=== PATIENT | female | born 1980 | race Two or more races ===

== ENCOUNTER 2023-07-22 07:41 | Inpatient (IN) | payer BC ==
[2023-07-20 12:03] LABS: Basophils # (auto) 0 10 ^3/uL (0-0.2); Basophils % (auto) 0.5 % (0.0-2.0); Eosinophils # (auto) 0.1 10 ^3/uL (0-0.8); Hematocrit 33.9 % (36.0-46.0); Hemoglobin 11.2 g/dL (12.2-16.2); Lymphocytes # (auto) 2.6 10 ^3/uL (0.4-5.4); Lymphocytes % (auto) 37.5 % (10.0-50.0); Mean Corpuscular Hemoglobin 28.5 pg (28.0-32.0); Mean Corpuscular Volume 86.3 fL (80.0-100.0); Monocytes # (auto) 0.6 10 ^3/uL (0-1.3); Monocytes % (auto) 8.7 % (0.0-12.0); Neutrophils # (auto) 3.6 10 ^3/uL (1.6-8.6); Neutrophils % (auto) 52.3 % (37.0-80.0); Red Blood Cells 3.93 10^6/uL (4.0-5.20); Red Cell Distribution Width 16.4 % (11.8-14.3); White Blood Cell 6.8 10^3/uL (4.4-10.8)
[2023-07-20 12:20] LABS: Urine Bacteria NONE SEEN /hpf (None Seen); Urine Blood 3+ /uL (Negative); Urine Clarity Clear (Clear); Urine Color Yellow (Yellow); Urine Mucus FEW (None Seen); Urine Protein, UAD TRACE (Negative); Urine Specific Gravity 1.028 (1.001-1.035); Urine Urobilinogen Normal (Negative); Urine WBC 7 /hpf (0 - 5)
[2023-07-20 12:28] LABS: INR 0.99 (0.9-1.15); Partial Thromboplastin Time 28.4 SEC (24.5-34.5); Prothrombin Time 10.4 sec (9.3-11.8)
[2023-07-20 12:36] LABS: Alanine Aminotransferase 12 U/L (7-40); Albumin 4.5 g/dL (3.2-4.8); Alkaline Phosphatase 66 U/L (46-116); Anion Gap 5 (5-15); Aspartate Aminotransferase 15 U/L (13-40); BUN/Creatinine Ratio 8.1 (10.0-20.0); Blood Urea Nitrogen 5 mg/dL (9-23); Calcium 9.1 mg/dL (8.5-10.1); Carbon Dioxide 27 mmol/L (20-30); Chloride 108 mmol/L (98-107); Glucose 95 mg/dL (74-106); Potassium 4.1 mmol/L (3.5-5.1); Sodium 140 mmol/L (136-145)
[2023-07-20 12:37] LABS: Bilirubin, Total 0.2 mg/dL (0.2-1.0); Total Protein 7.3 g/dL (5.7-8.2)
[~2023-07-22] VITALS: Ht 170.2 cm; Wt 72.0 kg
[~2023-07-22 07:41] MED LIST: FLUO20TA36 PO
[2023-07-22] MEDS ORDERED: ceFAZolin 2 GM/D5W100ml 100 ML IV ONE (07:59)
[2023-07-22] MEDS ORDERED: ACETAMINOPHEN IV 100 ML IV ONE (07:59)
[2023-07-22] MEDS ORDERED: GABAPENTIN 400 MG CAP ONE (08:00)
[2023-07-22] MEDS ORDERED: CELECOXIB 100 MG CAP ONE (08:00)
[2023-07-22] MEDS ORDERED: GABAPENTIN 300 MG CAP PO ONE (08:00)
[2023-07-22] MEDS ORDERED: CELECOXIB 100 MG CAP PO ONE (08:00)
[2023-07-22] MEDS ORDERED: ACETAMINOPHEN IV 1000 MG/100ML (10MG/ML) IV ONE (08:00)
[2023-07-22] MEDS ORDERED: GABAPENTIN 100 MG CAP ONE (08:00)
[2023-07-22] MEDS ORDERED: SUCCINYLCHOLINE CHLORIDE 20 MG/ML 10ML VIAL IV ONE (08:29)
[2023-07-22] MEDS ORDERED: fentaNYL CITRATE 100 MCG/2 ML VL ONE (08:34)
[2023-07-22] MEDS ORDERED: PROPOFOL 10 MG/ML 20 ML IV ONE (08:35)
[2023-07-22] MEDS ORDERED: BUPIVACAINE HCL 0.25% P/F 10 ML VIAL ONE (08:41)
[2023-07-22] MEDS ORDERED: ROCURONIUM 10MG/ML 10ML VIAL IV ONE (09:03)
[2023-07-22] MEDS ORDERED: ONDANSETRON HCL 4 MG/2 ML VIAL ONE (09:04)
[2023-07-22] MEDS ORDERED: DexAMETHasone SOD PHOS 10MG/1ML VIAL INJ ONE (09:04)
[2023-07-22] MEDS ORDERED: ePHEDrine SULFATE 50 MG/ML AMP ONE (09:10)
[2023-07-22] MEDS: BUPIVACAINE 0.5% P/F INJ 10 ML VIAL ONE ×2 (09:20→13:10)
[2023-07-22] MEDS: LIDOCAINE W/ EPINEPHRINE 1% 20ML VIAL ONE ×2 (09:20→13:11)
[2023-07-22] MEDS: VASOPRESSIN 20 UNIT/ML ONE ×2 (09:30→13:11)
[2023-07-22] MEDS ORDERED: MEPERIDINE HCL (25 MG/ML) 1ML VIAL ONE ×2 (10:18→10:49)
[2023-07-22] MEDS: METHYLENE BLUE 0.5% 5MG/ML 10ml AMP IV ONE ×2 (10:30→13:12)
[2023-07-22] MEDS ORDERED: SUGAMMADEX 200mg/2ml Vial (100MG/ML) IV ONE (10:36)
[2023-07-22] MEDS ORDERED: SODIUM CHLORIDE LOCK 30 ML ONE (10:42)
[2023-07-22 11:08] VITALS: RESP 9; O2SAT 99
[2023-07-22] MEDS ORDERED: ACETAMINOPHEN 500 MG TAB PO PRN (11:15)
[2023-07-22] MEDS ORDERED: HYDROcodone-ACET 5/325MG TAB PO PRN (11:15)
[2023-07-22] MEDS ORDERED: NITROGLYCERIN 0.4 MG SL TAB SL PRN (11:30)
[2023-07-22] MEDS ORDERED: MORPHINE SULFATE INJ 2 MG/ml SYRG IV PRN (11:30)
[2023-07-22] MEDS ORDERED: MEPERIDINE HCL (25 MG/ML) 1ML VIAL IV PRN (11:45)
[2023-07-22] MEDS ORDERED: ONDANSETRON HCL 4 MG/2 ML VIAL IV PRN (11:45)
[2023-07-22] MEDS ORDERED: HYDROmorphone HCL 2 MG/ML VL/or syr IV PRN (11:45)
[2023-07-22 13:00] VITALS: BP 116/69; PULSE 77; RESP 18; TEMP 97.2; O2SAT 99
[2023-07-22 13:01] VITALS: PULSE 77; RESP 18; O2SAT 99
[2023-07-22] MEDS: HYDROmorphone HCL 2 MG/ML VL/or syr IV PRN ×3 (13:07→22:27)
[2023-07-22] MEDS ORDERED: FLUO-126 PO (13:15)
[2023-07-22] MEDS ORDERED: ALPR0.25 PO (13:15)
[2023-07-22] MEDS: ceFAZolin 1GM/50ML 50 ML IV SCH ×2 (15:23→21:58)
[2023-07-22 17:00] VITALS: BP 120/70; PULSE 100; RESP 20; TEMP 98.3; O2SAT 97
[2023-07-22 18:44] LABS: Basophils # (auto) 0 10 ^3/uL (0-0.2); Eosinophils # (auto) 0 10 ^3/uL (0-0.8); Hematocrit 32.7 % (36.0-46.0); Hemoglobin 10.5 g/dL (12.2-16.2); Lymphocytes # (auto) 0.6 10 ^3/uL (0.4-5.4); Lymphocytes % (auto) 4.9 % (10.0-50.0); Mean Corpuscular Hemoglobin 27.8 pg (28.0-32.0); Mean Corpuscular Volume 86.7 fL (80.0-100.0); Monocytes # (auto) 0.2 10 ^3/uL (0-1.3); Monocytes % (auto) 1.4 % (0.0-12.0); Neutrophils # (auto) 11.1 10 ^3/uL (1.6-8.6); Neutrophils % (auto) 93.7 % (37.0-80.0); Red Blood Cells 3.77 10^6/uL (4.0-5.20); Red Cell Distribution Width 16.2 % (11.8-14.3); White Blood Cell 11.9 10^3/uL (4.4-10.8)
[2023-07-22 22:00] VITALS: BP 113/55; PULSE 95; RESP 17; TEMP 99.6; O2SAT 98
[2023-07-23] MEDS ORDERED: PERCOT PO ×2 (01:16)
[2023-07-23] MEDS ORDERED: IBUP-1455 PO (01:17)
[2023-07-23 05:00] VITALS: BP 115/69; PULSE 79; RESP 18; TEMP 98.6; O2SAT 97
[2023-07-23] MEDS: ceFAZolin 1GM/50ML 50 ML IV SCH ×2 (05:58→14:07)
[2023-07-23] MEDS: HYDROmorphone HCL 2 MG/ML VL/or syr IV PRN ×4 (05:58→21:24)
[2023-07-23 09:24] VITALS: BP 114/50; PULSE 84; RESP 18; TEMP 98.1; O2SAT 98
[2023-07-23 13:23] VITALS: BP 103/63; PULSE 83; RESP 16; TEMP 98.6; O2SAT 97
[2023-07-23 16:54] VITALS: BP 114/68; PULSE 81; RESP 16; TEMP 98.4; O2SAT 94
[2023-07-24] MEDS: ceFAZolin 1GM/50ML 50 ML IV SCH ×2 (00:12→06:18)
[2023-07-24 05:00] VITALS: BP 103/52; PULSE 78; RESP 16; TEMP 98.9; O2SAT 96
[2023-07-24 08:00] VITALS: BP 108/68; PULSE 74; RESP 21; TEMP 98.1; O2SAT 97
[2023-07-24 12:00] VITALS: BP 109/69; PULSE 81; RESP 20; TEMP 99.5; O2SAT 96
[2023-07-24 13:56] VITALS: BP 109/96; PULSE 96; RESP 20; TEMP 99.5; O2SAT 96
[2023-07-25] MEDS ORDERED: PERCOT PO (08:28)
[2023-07-25] MEDS ORDERED: HYDR-4902 PO (08:31)
== END 2023-07-24 14:00 | disposition home or self-care (01) | DRG 743 ==
LOC: SUR 07:41 → WEST WING 11:27 → UNDOADMIN 12:18 → TELE-WESTW 12:18 → WEST WING 07-24 01:50
PROVIDERS: ADMIT Obstetrics & Gynecology; ATTEND Obstetrics & Gynecology
PROC: 0TJB8ZZ Inspection of Bladder, Via Natural or Artificial Opening Endoscopic (ICD-10-PCS; 2023-07-22)
PROC: 0UT9FZZ Resection of Uterus, Via Natural or Artificial Opening With Percutaneous Endoscopic Assistance (ICD-10-PCS; 2023-07-22)
PROC: 0UT7FZZ Resection of Bilateral Fallopian Tubes, Via Natural or Artificial Opening With Percutaneous Endoscopic Assistance (ICD-10-PCS; principal; 2023-07-22 08:53)
DX: N80.03 Adenomyosis of the uterus (principal); N83.201 Unspecified ovarian cyst, right side; N92.0 Excessive and frequent menstruation with regular cycle; G89.29 Other chronic pain; R10.2 Pelvic and perineal pain
CPT/HCPCS: 36415; 80053; 81001; 81025; 84702; 85025; 85610; 85730; 86850; 86900; 86901; G0378; J0131; J0330; J0690; J1100; J2405; J2704; J3490